=== PATIENT | female | born 2000 | race Caucasian/White ===

== ENCOUNTER 2019-05-30 11:53 | Emergency (ER) | payer OTHER ==
[2019-05-30 12:43] VITALS: BP 109/58
--- NOTE | 2019-05-30 13:07 | UC ---
UC General HPI - HPI Summary HPI Summary: pt is c/o urinary burning with bladder pressure plus frequency since yesterday. no fever, flank pain, abdominal pain, vaginal discharge or risk/concern for pelvic infection. - History of Current Complaint Chief Complaint: UCGU Stated Complaint: URINARY CONCERN Time Seen by Provider: 05/30/19 12:59 Hx Obtained From: Patient Hx Last Menstrual Period: 05/12/19 Onset/Duration: Gradual Onset Timing: Constant Pain Intensity: 4 - Allergy/Home Medications Allergies/Adverse Reactions: Allergies Allergy/AdvReac Type Severity Reaction Status Date / Time No Known Allergies Allergy Verified 05/30/19 12:37 Home Medications: Home Medications Norethindrone AC-Eth Estradiol [10/16] 1 tab PO DAILY 05/30/19 [History Confirmed 05/30/19] PMH/Surg Hx/FS Hx/Imm Hx Previously Healthy: Yes - Surgical History Surgical History: None - Family History Known Family History: Positive: Non-Contributory - Social History Occupation: Student Alcohol Use: Occasionally Substance Use Type: None Smoking Status (MU): Never Smoked Tobacco Review of Systems All Other Systems Reviewed And Are Negative: Yes Constitutional: Negative: Fever, Chills Gastrointestinal: Negative: Abdominal Pain, Vomiting, Diarrhea, Nausea Genitourinary: Positive: Dysuria, Frequency, Urgency. Negative: Hematuria, Vaginal/Penile Discharge, Ulceration/Lesion Physical Exam Triage Information Reviewed: Yes Appearance: Well-Appearing Vital Signs: Initial Vital Signs Temp 98.5 F 05/30/19 12:38 Pulse 65 05/30/19 12:38 Resp 17 05/30/19 12:38 BP 109/58 05/30/19 12:38 Pulse Ox 100 05/30/19 12:38 Vital Signs Reviewed: Yes Eyes: Positive: Conjunctiva Clear ENT: Positive: Normal ENT inspection Neck: Positive: Supple Respiratory: Positive: Lungs clear Cardiovascular: Positive: RRR, No Murmur Abdomen Description: Positive: Nontender, No Organomegaly, Soft. Negative: CVA Tenderness (R), CVA Tenderness (L) Bowel Sounds: Positive: Present Neurological: Positive: Alert Psychological: Positive: Age Appropriate Behavior Skin Exam: Normal Diagnostics - Laboratory Lab Results: u/a= 1+ blood and 1+ leukocytes with culture pending. Course/Dx - Diagnoses Provider Diagnosis: Dysuria Discharge ED - Sign-Out/Discharge Documenting (check all that apply): Patient Departure All imaging exams completed and their final reports reviewed: No Studies - Discharge Plan Condition: Stable Disposition: HOME Prescriptions: Nitrofurantoin Monohyd/M-Cryst [Macrobid 100 mg Capsule] 100 mg PO BID 5 Days # 10 cap Patient Education Materials: Dysuria (ED) Referrals: [facility] [Outside] - 7 Days - Billing Disposition and Condition Condition: STABLE Disposition: Home
== END 2019-05-30 13:21 | disposition home or self-care (01) ==
LOC: UCCORT 11:53
DX: R30.0 Dysuria (principal)
CPT/HCPCS: 81003; 87077; 87086; 87186; 99202; G0463